=== PATIENT | female | born 1940 | race Caucasian/White ===

== ENCOUNTER → 2017-08-26 | Outpatient (CLI) | payer MEDICARE ==
[2014-01-25 11:46] VITALS: BMI 31.6
[~2017-08-26] MED LIST: ACET-3160 PO; ASPI-1471 PO; BLOO-1037 ASDIRECTED; BLOO-1511 MC; CALC-1 PO; CYAN1000 IJ; FERR-53 PO; FISH1CAP15 PO; FLU15T TOP; FLUT16SP20 NS; FOLI-68 PO; GLIM2TAB43 PO; HYDR12.597 PO; IBUP200C71 PO; IPRA4AER IH; LISI20TA29 PO; METF-420 PO; MULT1TAB64 PO; NIT4 SL; ONDA4TAB97 PO; PANT40TA63 PO; SIMV10TA98 PO; VIT-7 PO; [UNRECOGNIZED DRUG - CODE] MC; [UNRECOGNIZED DRUG - CODE] TP
[2017-08-26 10:45] LABS: LDL CHOLESTEROL 69 mg/dl
== END ==
LOC: LAB 09:27
PROVIDERS: ATTEND Family Medicine
DX: I10 Essential (primary) hypertension (principal); E78.5 Hyperlipidemia, unspecified; E11.65 Type 2 diabetes mellitus with hyperglycemia; R19.7 Diarrhea, unspecified
CPT/HCPCS: 36415; 82040; 82043; 82247; 82310; 82374; 82435; 82465; 82565; 82947; 83036; 83718; 84075; 84132; 84155; 84295; 84443; 84450; 84460; 84478; 84520

== ENCOUNTER → 2017-08-27 | Outpatient (CLI) | payer MEDICARE ==
[2014-01-25 11:46] VITALS: BMI 31.6
--- NOTE | 2017-08-27 11:15 | EKG ---
FACILITY: [facility] PATIENT NAME: KVNG MATOS : [id number] MR: [id number] V: [id number] EXAM DATE: ORDERING PHYSICIAN: JEREMY SIDDIQUI TECHNOLOGIST: SANTHOSH Davis Reason : CHEST TIGHTNESS Blood Pressure : / mmHG Vent. Rate : 078 BPM Atrial Rate : 078 BPM P-R Int : 148 ms QRS Dur : 082 ms QT Int : 392 ms P-R-T Axes : 075 068 067 degrees QTc Int : 446 ms Normal sinus rhythm Normal ECG No previous ECGs available Confirmed by KHADRA FRANKLIN ([id number]) on 08/27/2017 11:57:40 AM Referred By: CHEN Confirmed By:KHADRA FRANKLIN
--- NOTE | 2017-08-27 11:56 | RADIOLOGY IMAGING REPORT ---
FACILITY: [facility] [place] PATIENT NAME: Jennifer Kong : 1940 MR: [id number] V: [id number] EXAM DATE: ORDERING PHYSICIAN: JEREMY SIDDIQUI TECHNOLOGIST: Location: [facility] [place] Patient: Jennifer Kong : 1940 Visit/Account:[id number] Date of Sevice: 08/27/2017 Exam type: CHEST PA AND LAT History: Cough and shortness of breath for 2 weeks Comparison: None. Findings: Both lungs are hyperinflated. There appear to be chronic interstitial changes but no focal infiltrat e, pleural effusion or pneumothorax. Heart size is upper limits of normal. The osseous structures demonstrate degenerative changes. IMPRESSION: 1. No acute cardiopulmonary disease. 2. Pulmonary hyperinflation with chronic interstitial changes. Report Dictated By: Murphy Linn MD at 08/27/2017 11:49 AM Report E-Signed By: Murphy Linn MD at 08/27/2017 11:51 AM WSN:[email or web address]
== END ==
LOC: RAD 10:53
PROVIDERS: ATTEND Family Medicine
DX: R91.8 Other nonspecific abnormal finding of lung field (principal); R53.83 Other fatigue; R06.02 Shortness of breath; R07.89 Other chest pain
CPT/HCPCS: 36415; 71046; 85027; 93005

== ENCOUNTER 2017-10-08 12:56 | Outpatient (RCR) | payer MEDICARE ==
[2014-01-25 11:46] VITALS: BMI 31.6
[2017-09-03 14:10] VITALS: BP 128/63
[2017-09-25 10:13] VITALS: BP 137/76
[~2017-10-08 12:56] MED LIST changes: +DEXTROSE 5%(*) 100 ML BAG 100 ML IVPB PRN; +IRON SUCROSE IVP PRN; +LIDOCAINE/SOD BICARB 8.4% SYR ID PRN; +NS 0.9% IVP PRN; +NS(*) 0.9% 100 ML BAG 100 ML IVPB PRN
== END 2017-10-09 15:05 | disposition home or self-care (01) ==
LOC: SPU 12:56
PROVIDERS: ATTEND Internal Medicine
DX: E72.12 Methylenetetrahydrofolate reductase deficiency (principal); E53.8 Deficiency of other specified B group vitamins; E11.9 Type 2 diabetes mellitus without complications; I10 Essential (primary) hypertension; E78.5 Hyperlipidemia, unspecified; M19.90 Unspecified osteoarthritis, unspecified site; M85.80 Other specified disorders of bone density and structure, unspecified site
CPT/HCPCS: 36415; 82728; 83540; 83550; 96365; 96366; G0463; J1756; J7050; 99212

== ENCOUNTER 2017-10-22 12:56 | Outpatient (RCR) | payer MEDICARE ==
[2014-01-25 11:46] VITALS: BMI 31.6
[2017-10-15 12:59] VITALS: BP 127/63
[~2017-10-22 12:56] MED LIST changes: +IRON SUCROSE 100 MG/5 ML VIAL 300 MG in NS(*) 0.9% 250 ML BAG 250 ML IVPB ONE; -IRON SUCROSE IVP PRN; -METF-420 PO; +METF-421 PO; -NS 0.9% IVP PRN
[2017-10-22] MEDS ORDERED: IRON SUCROSE 100 MG/5 ML VIAL 300 MG in NS(*) 0.9% 250 ML BAG 250 ML IVPB ONE (14:00)
== END 2017-12-11 14:21 | disposition home or self-care (01) ==
LOC: SPU 12:56
PROVIDERS: ATTEND Internal Medicine
DX: E72.12 Methylenetetrahydrofolate reductase deficiency (principal); E53.8 Deficiency of other specified B group vitamins; E11.9 Type 2 diabetes mellitus without complications; I10 Essential (primary) hypertension; E78.5 Hyperlipidemia, unspecified; M19.90 Unspecified osteoarthritis, unspecified site; M85.80 Other specified disorders of bone density and structure, unspecified site; R53.83 Other fatigue
CPT/HCPCS: 96365; 96366; J1756; J7050

== ENCOUNTER 2018-02-05 09:37 | Emergency (ER) | payer MEDICARE ==
[2014-01-25 11:46] VITALS: Wt 72.6 kg
[~2018-02-05 09:37] MED LIST changes: -DEXTROSE 5%(*) 100 ML BAG 100 ML IVPB PRN; +IBUP-136 PO; -IBUP200C71 PO; -IRON SUCROSE 100 MG/5 ML VIAL 300 MG in NS(*) 0.9% 250 ML BAG 250 ML IVPB ONE; -LIDOCAINE/SOD BICARB 8.4% SYR ID PRN; -NS(*) 0.9% 100 ML BAG 100 ML IVPB PRN
[2018-02-05] MEDS ORDERED: LOVA20TA99 PO (09:51)
--- NOTE | 2018-02-05 09:56 | ER Report ---
History and Physical Time Seen By MD: 09:55 Hx. of Stated Complaint: PATIENT REPORTS SHORTNESS OF BREATH FOR THE LAST WEEK HPI/ROS CHIEF COMPLAINT: chest pain HISTORY OF PRESENT ILLNESS: This is a 77 year old female. She is having some difficulty breathing with some chest heaviness. She has COPD and has been having some increased cough and increased sputum. No measured fevers, but feeling hot and cold chills. Uses oxygen at night. No nausea or vomiting. No abdominal pain. No trouble with bowel or bladder function. Nothing makes symptoms worse or better. Allergies: Coded Allergies: Penicillins (Unverified Allergy, Intermediate, Rash, 02/22/14) Sulfa (Sulfonamide Antibiotics) (Unverified Allergy, Intermediate, Hives/ Itching, 02/22/14) morphine (Unverified Allergy, Intermediate, Itching/Rash, 02/22/14) adhesive (Unverified Allergy, Mild, Itching/Redness, 02/22/14) Paper tape ok gluten (Verified Allergy, Unknown, 09/06/15) Home Meds Active Scripts Azithromycin (ZITHROMAX) 250 Mg Tablet, 0 PO QDAY, #6 TAB 0 Refills Take 2 tablets today, then one daily for 4 days Prov:GEOVANNA MILTON MD 02/05/18 Prednisone (PREDNISONE) 20 Mg Tablet, 40 MG PO QDAY, #10 TAB 0 Refills Prov:GEOVANNA MILTON MD 02/05/18 Cyanocobalamin (Vitamin B-12) (CYANOCOBALAMIN INJECTION) 1,000 Mcg/1 Ml Vial, 1000 MCG IJ Every 30 days, #1 VIAL 11 Refills for high homocysteine Prov:JAYLEN MENDOZA MD 10/14/17 Folic Acid (FOLIC ACID) 1 Mg Tablet, 1 MG PO QDAY for 30 Days, #30 TAB 9 Refills Prov:MICHAEL BENAVIDEZ FUEL ASSEMBLER-BC, ONC 01/01/17 Blood Sugar Diagnostic (BLOOD GLUCOSE TEST STRIP) 1 Each Strip, 1 STRIP ASDIRECTED QDAY, #100 STICK 6 Refills Prov:LAKESHIA JURADO MD 03/10/14 Reported Medications Lovastatin (LOVASTATIN) 20 Mg Tablet, 20 MG PO QDAY 02/05/18 Ferrous Sulfate (FERROUS SULFATE) 325 Mg Tablet, 325 MG PO DAILY 04/12/17 Glimepiride (GLIMEPIRIDE) 2 Mg Tablet, 1 MG PO QDAY 03/13/17 Vit A,C & E/Lutein/Minerals (OCUVITE TABLET) 1 Each Tablet, 1 EACH PO QDAY 02/22/14 Fish Oil/Dha/Epa (FISH OIL 1,200 MG FISH OIL) 1 Each Capsule, 1 EACH PO BID, CAPSULE 02/22/14 Calcium Carbonate/Vitamin D3 (CALTRATE 600 + D TABLET) 1 Each Tablet, 1 EACH PO BID 02/22/14 Aspirin (ASPIR 81) 81 Mg Tablet.dr, 81 MG PO QDAY, TAB 02/22/14 Nitroglycerin (NITROSTAT) 0.4 Mg Subl, 0.4 MG SL Q5MIN Y for PAIN 02/22/14 Ipratropium/Albuterol Sulfate (COMBIVENT RESPIMAT INHAL SPRAY) 4 Gm Aer.w.adap, 1-2 PUFF IH QID 02/22/14 Lancets (MICROLET) 1 Each Each, 1 EACH MC, #90 02/22/14 Metformin Hcl (METFORMIN HCL) 1,000 Mg Tablet, 1 TAB PO BID TAKE ONE TABLET BY MOUTH TWO TIMES A DAY 02/22/14 Lisinopril (LISINOPRIL) 20 Mg Tablet, 20 MG PO QDAY 02/22/14 Hydrochlorothiazide (MICROZIDE) 12.5 Mg Capsule, 1 CAP PO QDAY, CAPSULE TAKE ONE CAPSULE BY MOUTH EVERY DAY 02/22/14 Discontinued Reported Medications Simvastatin (SIMVASTATIN) 10 Mg Tablet, 10 MG PO HS, TAB 02/22/14 Reviewed Nurses Notes: Yes Hx Smoking: Yes Smoking Status: Former Smoker Constitutional Vital Sign - Last 24 Hours 02/05/18 02/05/18 02/05/18 02/05/18 09:37 09:40 09:41 10:00 Temp 98.1 Pulse ??? 72 Resp 24 B/P (MAP) 135/76 (95) 135/76 128/56 (80) Pulse Ox 95 O2 Delivery Room Air 02/05/18 02/05/18 02/05/18 02/05/18 10:07 10:07 10:18 10:37 Pulse 70 73 76 73 Resp 12 14 14 19 Pulse Ox 94 94 02/05/18 02/05/18 02/05/18 11:00 11:07 11:12 Pulse 70 67 Resp 16 8 B/P (MAP) 127/65 (85) Pulse Ox 93 95 Intake and Output 02/05/18 02/05/18 02/06/18 15:00 23:00 07:00 Intake Total 1000 ml Balance 1000 ml Physical Exam General Appearance: The patient is alert. No acute distress. Eyes: Pupils are equal, round. No pallor, injection or icterus. ENT: Mucous membranes are moist. Normal oral mucosa. Posterior oropharynx is normal. Neck: Supple and non tender. Respiratory: Lungs are clear, but a little diminished in the bases bilaterally. No wheezing or rales. Cardiovascular: Regular rate and rhythm. No murmurs, gallops or rubs. Normal capillary refill. Trace edema in legs. Gastrointestinal: Abdomen is soft and non tender. Nondistended. Normal active bowel sounds. Neurological: Alert and oriented x3. Skin: Warm and dry. No rashes. DIFFERENTIAL DIAGNOSIS: After history and physical exam, differential diagnosis was considered for shortness of breath including but not limited to pulmonary infectious process, COPD, asthma, pulmonary embolus and congestive heart failure. Medical Decision Making Data Points Result Diagram: 02/05/18 1005 02/05/18 1005 Laboratory Hematology Test 02/05/18 10:05 Red Blood Count 4.29 M/uL (4.17-5.56) Mean Corpuscular Volume 90.5 fL (80.0-96.0) Mean Corpuscular Hemoglobin 31.2 pg (26.0-33.0) Mean Corpuscular Hemoglobin Concent 34.4 g/dL (32.0-36.0) Red Cell Distribution Width 12.9 % (11.5-14.5) Mean Platelet Volume 6.5 fL (7.2-11.1) Neutrophils (%) (Auto) 58.2 % (39.4-72.5) Lymphocytes (%) (Auto) 28.8 % (17.6-49.6) Monocytes (%) (Auto) 9.3 % (4.1-12.4) Eosinophils (%) (Auto) 2.9 % (0.4-6.7) Basophils (%) (Auto) 0.8 % (0.3-1.4) Nucleated RBC Relative Count (auto) 0.0 /100WBC Neutrophils # (Auto) 2.0 K/uL (2.0-7.4) Lymphocytes # (Auto) 1.0 K/uL (1.3-3.6) Monocytes # (Auto) 0.3 K/uL (0.3-1.0) Eosinophils # (Auto) 0.1 K/uL (0.0-0.5) Basophils # (Auto) 0.0 K/uL (0.0-0.1) Nucleated RBC Absolute Count (auto) 0.00 K/uL Sodium Level 140 mmol/L (137-145) Potassium Level 3.9 mmol/L (3.5-5.0) Chloride Level 101 mmol/L (98-107) Carbon Dioxide Level 27 mmol/L (22-31) Blood Urea Nitrogen 16 mg/dl (7-18) Creatinine 0.90 mg/dl (0.52-1.04) Glomerular Filtration Rate Calc > 60.0 Random Glucose 100 mg/dl (75-110) Calcium Level 8.7 mg/dl (8.4-10.2) Total Bilirubin 0.4 mg/dl (0.2-1.3) Aspartate Amino Transf (AST/SGOT) 29 U/L (0-35) Alanine Aminotransferase (ALT/SGPT) 23 U/L (0-56) Alkaline Phosphatase 60 U/L (0-126) Troponin I < 0.012 ng/ml B-Type Natriuretic Peptide 64 pg/ml (0-100) Total Protein 6.8 g/dl (6.3-8.2) Albumin 4.1 g/dl (3.5-5.0) Chemistry Test 02/05/18 10:05 White Blood Count 3.5 k/uL (4.5-11.0) Red Blood Count 4.29 M/uL (4.17-5.56) Hemoglobin 13.4 g/dL (12.0-16.0) Hematocrit 38.8 % (34.0-47.0) Mean Corpuscular Volume 90.5 fL (80.0-96.0) Mean Corpuscular Hemoglobin 31.2 pg (26.0-33.0) Mean Corpuscular Hemoglobin Concent 34.4 g/dL (32.0-36.0) Red Cell Distribution Width 12.9 % (11.5-14.5) Platelet Count 175 K/uL (150-450) Mean Platelet Volume 6.5 fL (7.2-11.1) Neutrophils (%) (Auto) 58.2 % (39.4-72.5) Lymphocytes (%) (Auto) 28.8 % (17.6-49.6) Monocytes (%) (Auto) 9.3 % (4.1-12.4) Eosinophils (%) (Auto) 2.9 % (0.4-6.7) Basophils (%) (Auto) 0.8 % (0.3-1.4) Nucleated RBC Relative Count (auto) 0.0 /100WBC Neutrophils # (Auto) 2.0 K/uL (2.0-7.4) Lymphocytes # (Auto) 1.0 K/uL (1.3-3.6) Monocytes # (Auto) 0.3 K/uL (0.3-1.0) Eosinophils # (Auto) 0.1 K/uL (0.0-0.5) Basophils # (Auto) 0.0 K/uL (0.0-0.1) Nucleated RBC Absolute Count (auto) 0.00 K/uL Glomerular Filtration Rate Calc > 60.0 Calcium Level 8.7 mg/dl (8.4-10.2) Total Bilirubin 0.4 mg/dl (0.2-1.3) Aspartate Amino Transf (AST/SGOT) 29 U/L (0-35) Alanine Aminotransferase (ALT/SGPT) 23 U/L (0-56) Alkaline Phosphatase 60 U/L (0-126) Troponin I < 0.012 ng/ml B-Type Natriuretic Peptide 64 pg/ml (0-100) Total Protein 6.8 g/dl (6.3-8.2) Albumin 4.1 g/dl (3.5-5.0) EKG/Imaging Imaging EXAMINATION: Chest radiographs 2 views HISTORY: Chest pain, shortness of breath. COMPARISON: 08/27/2017. FINDINGS: PA and lateral views of the chest are submitted. Lines/tubes: None. Lungs/pleura: No focal consolidation or pleural effusion. There are a few coarse peripheral reticular opacities, unchanged. Heart: Negative. Mediastinum: Atherosclerotic calcifications of the aorta. Bony structures/body wall: Mild degenerative changes of the thoracic spine. IMPRESSION: 1. No radiographic evidence of acute cardiopulmonary disease. 2. Mild chronic fibrosis, unchanged. Report Dictated By: Yolis Langford MD at 02/05/2018 10:46 AM ED Course/Re-evaluation Clinical Indication for ER IV: IV Access ED Course No change with breathing treatment. X-ray as noted above. This appears to be COPD exacerbation. Prescribed prednisone burst with a course of azithromycin Decision to Disposition Date: Feb 05, 2018 Decision to Disposition Time: 11:12 Depart Departure Latest Vital Signs Vital Signs Date Time Temp Pulse Resp B/P (MAP) Pulse Ox O2 Delivery O2 Flow Rate FiO2 02/05/18 11:12 67 8 95 02/05/18 11:00 127/65 (85) 02/05/18 09:41 98.1 Room Air Impression: Primary Impression: COPD exacerbation Condition: Improved Disposition: HOME OR SELF-CARE Referrals: JEREMY SIDDIQUI DO (PCP) New Scripts Azithromycin (ZITHROMAX) 250 Mg Tablet 0 PO QDAY, #6 TAB 0 Refills Take 2 tablets today, then one daily for 4 days Prov: GEOVANNA MILTON MD 02/05/18 Prednisone (PREDNISONE) 20 Mg Tablet 40 MG PO QDAY, #10 TAB 0 Refills Prov: GEOVANNA MILTON MD 02/05/18 Patient Instructions: COPD (Chronic Obstructive Pulmonary Disease) (ED) Additional Instructions: Take Prednisone 20mg tablets, two tablets every day for 5 days. Take Azithromycin 250mg, take 2 tablets today, then one day for 4 more days. Consider starting a nebulizer with DuoNeb treatments every 4 hours as needed for shortness of breath. GEOVANNA MILTON MD Feb 05, 2018 09:55
[2018-02-05] MEDS ORDERED: NS(*) 0.9% 1000 ML BAG 1,000 ML IV ONE (10:01)
[2018-02-05] MEDS ORDERED: ASPIRIN 81 MG CHEW PO ONE (10:05)
[2018-02-05] MEDS ORDERED: ALBUTEROL/IPRATROPIUM 3 ML NEB NEB ONE (10:05)
--- NOTE | 2018-02-05 10:16 | EKG ---
FACILITY: [facility] PATIENT NAME: KVNG MATOS : [id number] MR: [id number] V: [id number] EXAM DATE: ORDERING PHYSICIAN: GEOVANNA MILTON TECHNOLOGIST: RENALDO Test Reason : DIFFICULTYBREATHING Blood Pressure : / mmHG Vent. Rate : 072 BPM Atrial Rate : 072 BPM P-R Int : 142 ms QRS Dur : 078 ms QT Int : 394 ms P-R-T Axes : 030 048 049 degrees QTc Int : 431 ms Normal sinus rhythm Normal ECG When compared with ECG of 27-AUG-2017 11:06, No significant change was found Referred By: YOAN Confirmed By:
[2018-02-05 10:17] LABS: PLATELET COUNT, AUTOMATED 175 K/uL (150-450)
--- NOTE | 2018-02-05 10:52 | RADIOLOGY IMAGING REPORT ---
FACILITY: [facility] PATIENT NAME: Jennifer Kong : 1940 MR: [id number] V: [id number] EXAM DATE: ORDERING PHYSICIAN: GEOVANNA MILTON TECHNOLOGIST: Location: [facility] - [place] Patient: Jennifer Kong : 1940 Visit/Account:[id number] Date of Sevice: 02/05/2018 EXAMINATION: Chest radiographs 2 views HISTORY: Chest pain, shortness of breath. COMPARISON: 08/27/2017. FINDINGS: PA and lateral views of the chest are submitted. Lines/tubes: None. Lungs/pleura: No focal consolidation or pleural effusion. There are a few coarse peripheral reticul ar opacities, unchanged. Heart: Negative. Mediastinum: Atherosclerotic calcifications of the aorta. Bony structures/body wall: Mild degenerative changes of the thoracic spine. IMPRESSION: 1. No radiographic evidence of acute cardiopulmonary disease. 2. Mild chronic fibrosis, unchanged. Report Dictated By: Yolis Langford MD at 02/05/2018 10:46 AM Report E-Signed By: Yolis Langford MD at 02/05/2018 10:47 AM WSN:[email or web address]
[2018-02-05 11:00] VITALS: BP 127/65
[2018-02-05] MEDS ORDERED: AZIT-1 PO (11:15)
[2018-02-05] MEDS ORDERED: PRED20TA6 PO (11:15)
== END 2018-02-05 11:30 | disposition home or self-care (01) ==
LOC: ER 09:45
DX: J44.1 Chronic obstructive pulmonary disease with (acute) exacerbation (principal)
CPT/HCPCS: 71046; 83880; 84484; 85025; 93005; 94640; 96360; 99284; A9270; J7030; J7620; 82040; 82247; 82310; 82374; 82435; 82565; 82947; 84075; 84132; 84155; 84295; 84450; 84460; 84520

== ENCOUNTER → 2018-03-19 | Outpatient (CLI) | payer MEDICARE ==
[2014-01-25 11:46] VITALS: BMI 31.6
[~2018-03-19] MED LIST changes: +AZIT-1 PO; +LOVA20TA99 PO; +PRED20TA6 PO
[2018-03-19 08:54] LABS: PLATELET COUNT, AUTOMATED 213 K/uL (150-450)
== END ==
LOC: LAB 07:57
PROVIDERS: ATTEND Internal Medicine
DX: E72.12 Methylenetetrahydrofolate reductase deficiency (principal)
CPT/HCPCS: 83090; 85025

== ENCOUNTER → 2018-03-19 | Outpatient (CLI) | payer MEDICARE ==
[2014-01-25 11:46] VITALS: BMI 31.6
[2018-03-19 10:23] LABS: LDL CHOLESTEROL 57 mg/dl
== END ==
LOC: LAB 07:53
PROVIDERS: ATTEND Family Medicine
DX: E11.65 Type 2 diabetes mellitus with hyperglycemia (principal); I10 Essential (primary) hypertension; E78.5 Hyperlipidemia, unspecified
CPT/HCPCS: 36415; 82040; 82043; 82247; 82310; 82374; 82435; 82465; 82565; 82947; 83036; 83718; 84075; 84132; 84155; 84295; 84443; 84450; 84460; 84478; 84520

== ENCOUNTER 2018-03-24 14:27 | Outpatient (RCR) | payer MEDICARE ==
[2014-01-25 11:46] VITALS: Wt 73.6 kg
[~2018-03-24 14:27] MED LIST changes: -METF-421 PO; +METF-452 PO
[2018-03-24 14:28] VITALS: BP 133/72
--- NOTE | 2018-03-25 21:42 | [facility] ONCOLOGY NOTE ---
EVENT DATE: March 24, 2018 CHIEF COMPLAINT/REASON FOR VISIT Ms. Kong is a very pleasant, 77-year-old female with known iron deficiency anemia and hyperhomocysteinemia. She continues to take supplemental iron, B12, and folic acid. Her labs look outstanding. All of her hematologic indices that we are following are in the normal range. Unfortunately, she continues to have considerable fatigue. I think this is multifactorial, and she sees her primary care provider later this week, Dr. Garcia. I think a more thorough workup is likely in order given the severity of her fatigue. We could consider evaluation of thyroid, cortisol, other hormones, sleep apnea. I am concerned that her daughter has sleep apnea as well. Her only other symptoms of note today include sciatica-type pain, and her daughter thinks that she needs an MRI. The patient is somewhat resistant to this. I do think her symptoms do sound like left greater than right sciatica. I do not think this is consistent with diabetic neuropathy, although her blood sugars have been poorly controlled recently as well. I advised them that the potential for sleep apnea, the poorly controlled blood sugars, and the inflammation in her back all could be contributing to her fatigue as well. Thankfully, she has no evidence of hematologic issues. However, this does not explain her considerable fatigue. PAST MEDICAL HISTORY 1. Hypertension. 2. Diabetes type II. 3. Hyperlipidemia. 4. Mitral regurgitation. 5. Diverticulosis. 6. Macular degeneration. 7. B12 deficiency. 8. MTHFR mutation. 9. Osteoarthritis. 10. COPD (chronic obstructive pulmonary disease). 11. Obesity. REVIEW OF SYSTEMS CONSTITUTIONAL: No fever, chills, significant weight change. HEENT: No headache, vision changes, neurologic symptoms other than that noted above. CARDIOVASCULAR: No chest pain, dyspnea on exertion, edema. Her daughter feels that she needs to see a billing services manager, but I do not hear any symptoms of concern, and I am unclear why the daughter would be concerned about this. Perhaps she is minimizing her symptoms. RESPIRATORY: No shortness of breath, wheeze, cough. GASTROINTESTINAL: No nausea or vomiting. GENITOURINARY: No dysuria or hematuria. MUSCULOSKELETAL: Positive fatigue. Positive concern for radiculopathy/sciatica pain. ENDOCRINE: No heat or cold intolerance. She states that she is a morning person, but then fades by the end of the day. Remainder of review of systems otherwise negative. PHYSICAL EXAMINATION VITAL SIGNS: Blood pressure 133/72, pulse 77, respiratory rate 16, temperature 97.2 Fahrenheit, oxygen saturation 92% on room air. Weight 73.6 kg. Pain zero/10. Fatigue 5/10. GENERAL: Stable condition, resting comfortably in the chair. HEENT: Normocephalic, atraumatic. CARDIOVASCULAR: Deferred. LUNGS: No respiratory distress. ABDOMEN: Obese. Full physical exam deferred today due to amount of time spent in counseling and discussion today. IMPRESSION/PLAN Mrs. Kong is a very pleasant, 77-year-old female with the followin. Vitamin B12 deficiency with a history of pernicious anemia and MTHFR homozygous mutations. Her B12 is adequately replaced now. 2. History of hyperhomocysteinemia, currently under control as she continues folic acid and B12. 3. History of vitamin B deficiency. This has been improved with recent studies, although we did not get that today. 4. Significant fatigue. I am concerned we are missing other causes such as related to her uncontrolled diabetes, inflammation in the back, and possibly other causes such as sleep apnea. She has a history of hypothyroidism in the past. I am thankful that she does not have any obvious abnormalities, but I recommend she follow up with Dr. Garcia as planned on for an evaluation. We could consider a sleep apnea evaluation, TSH, a.m. cortisol level, and other tests. It would be critical that she improve her diabetes management. I answered all her questions today. BILLING Level 3. Total time 20, counseling time 15. MTDD
== END 2018-04-09 09:08 | disposition home or self-care (01) ==
LOC: ONC 14:27
PROVIDERS: ATTEND Internal Medicine
DX: D50.9 Iron deficiency anemia, unspecified (principal); E53.8 Deficiency of other specified B group vitamins; E72.12 Methylenetetrahydrofolate reductase deficiency; R53.83 Other fatigue; E11.9 Type 2 diabetes mellitus without complications; J44.9 Chronic obstructive pulmonary disease, unspecified; E72.11 Homocystinuria
CPT/HCPCS: 99212

== ENCOUNTER → 2018-04-28 | Outpatient (CLI) | payer MEDICARE ==
[2014-01-25 11:46] VITALS: BMI 31.6
--- NOTE | 2018-04-28 13:27 | RADIOLOGY IMAGING REPORT ---
FACILITY: [facility] [place] PATIENT NAME: Jennifer Kong : 1940 MR: [id number] V: [id number] EXAM DATE: ORDERING PHYSICIAN: JEREMY SIDDIQUI TECHNOLOGIST: Location: [facility] Patient: Jennifer Kong : 1940 Visit/Account:[id number] Date of Sevice: 04/28/2018 Exam type: LUMBAR SPINE 2 OR 3 VIEW History: Lidocaine up in the middle the night with deep sharp leg pain on the left Comparison: None. Findings: Assuming there are five lumbar type vertebra there is no evidence of acute fractures or subluxations. There is mild disc space narrowing at L4-5 and L5-S1 and extensive degenerative facet joint changes at L3-4, L4-5 and L5-S1. There are moderate anterior osteophytes in the visual as portion lower tho racic spine. Vascular calcifications are present in the abdominal aorta IMPRESSION: 1. Moderate spondylotic changes lower lumbar spine as described Report Dictated By: Dolly Stephen MD at 04/28/2018 1:22 PM Report E-Signed By: Dolly Stephen MD at 04/28/2018 1:24 PM WSN:[email or web address]
--- NOTE | 2018-04-28 13:27 | RADIOLOGY IMAGING REPORT ---
FACILITY: [facility] [place] PATIENT NAME: Jennifer Kong : 1940 MR: [id number] V: [id number] EXAM DATE: ORDERING PHYSICIAN: JEREMY SIDDIQUI TECHNOLOGIST: Location: [facility] Patient: Jennifer Kong : 1940 Visit/Account:[id number] Date of Sevice: 04/28/2018 Exam type: HIP LEFT History: Waking up in the middle the night with deep sharp leg pain Comparison: None. Findings: Two views the left hip which include an AP view the pelvis demonstrates no evidence of acute fracture or dislocation. There are mild degenerative changes involving both hip joints and moderate degenera tive changes in the visualized lower lumbar spine and at the pubic symphysis. IMPRESSION: 1. Mild degenerative changes of the left hip joint although no evidence of acute fracture or disloca tion Report Dictated By: Dolly Stephen MD at 04/28/2018 1:19 PM Report E-Signed By: Dolly Stephen MD at 04/28/2018 1:22 PM WSN:[email or web address]
--- NOTE | 2018-04-29 09:18 | RADIOLOGY IMAGING REPORT ---
FACILITY: [facility] [place] PATIENT NAME: KVNG MATOS : [id number] MR: [id number] V: [id number] EXAM DATE: ORDERING PHYSICIAN: JEREMY SIDDIQUI TECHNOLOGIST: Katrina Reese PROCEDURE:BILATERAL DIGITAL SCREENING MAMMOGRAM WITH CAD ASSISTED INTERPRETATION & 3D TOMOSYNTHESIS COMPARISON:Prior mammograms 08/03/16, 05/25/15, 04/30/14, 01/21/13, 01/08/12, 08/08/11. INDICATIONS:SCREENING FINDINGS: A small amount of fibroglandular tissue is seen throughout the breasts. The parenchymal pattern has remained stable allowing for difference in mammographic technique & patient positioning. There is no evidence of malignant appearing mass, malignant appearing calcifications or other secondary sign of malignancy in either breast. DIAGNOSTIC CATEGORY 1--NEGATIVE. RECOMMENDATIONS: ROUTINE MAMMOGRAM AND CLINICAL EVALUATION. IMPRESSION: BIRADS 1: Negative. No significant abnormality is seen. Dictated by: Dolly Stephen M.D. on 04/28/2018 at 17:05 Transcribed by: MARCOS on 04/29/2018 at 7:56 Approved by: Dolly Stephen M.D. on 04/29/2018 at 9:17 [facility]
== END ==
LOC: MAMO 01:17
PROVIDERS: ATTEND Family Medicine
DX: Z12.31 Encounter for screening mammogram for malignant neoplasm of breast (principal); I70.0 Atherosclerosis of aorta; M47.896 Other spondylosis, lumbar region; M16.12 Unilateral primary osteoarthritis, left hip
CPT/HCPCS: 72100; 77063; 77067

== ENCOUNTER → 2018-12-05 | Outpatient (CLI) | payer MEDICARE, BC ==
[2014-01-25 11:46] VITALS: BMI 31.6
== END ==
LOC: LAB 08:37
PROVIDERS: ATTEND Family Medicine
DX: E78.5 Hyperlipidemia, unspecified (principal); E11.65 Type 2 diabetes mellitus with hyperglycemia; E03.9 Hypothyroidism, unspecified; I10 Essential (primary) hypertension; D50.9 Iron deficiency anemia, unspecified
CPT/HCPCS: 36415; 82040; 82043; 82247; 82310; 82374; 82435; 82465; 82565; 82728; 82947; 83036; 83718; 84075; 84132; 84155; 84295; 84443; 84450; 84460; 84478; 84520